=== PATIENT | male | born 1975 | race Caucasian/White ===

== ENCOUNTER 2022-06-15 10:07 | Outpatient (CLI) | payer BC ==
[2022-06-15 12:57] LABS: Bilirubin Neg (Negative); Blood, Urine 50 (Negative); Clarity Clear (Clear); Glucose, Urine (Dipstick) Normal (Negative); Ketone, Urine Negative (Negative); Leukocyte Negative (Negative); Nitrite Negative (Negative); Protein, Urine (Dipstick) Negative (Neg-Trace); Specific Gravity, Urine 1.025 (1.005-1.030); Urobilinogen Normal mg/dL (Less than 2)
[2022-06-15 13:03] LABS: Hemoglobin 15.7 g/dL (13.5-17.5); Mean Corpuscular HGB CONC 32.6 g/dL (32.0-36.0); Mean Corpuscular Hemoglobin 28.6 pg (27.0-33.0); Mean Corpuscular Volume 87.8 fl (81.2-95.1); Mean Platelet Volume 12.1 fl (7.4-10.4); Platelet Count 197 10x3/uL (150-450); RBC Distribution Width 13.2 % (11.5-14.5); Red Blood Cell (RBC) Count 5.48 10x6/uL (4.32-5.72)
[2022-06-15 13:15] LABS: Squamous Epithelial 0-3 HPF (0-3); WBC/HPF 0-3 HPF (0-3)
[2022-06-15 13:16] LABS: INR-International Normal Ratio 0.9; PTT 24.1 sec (22.0-33.0); Prothrombin Time 10.1 sec (9.5-12.1)
[2022-06-15 13:16] LABS: Mucous/LPF 1+ LPF (<2+)
[2022-06-15 13:17] LABS: Bacteria/HPF 1+ HPF (None Seen)
[2022-06-15 13:38] LABS: Anion Gap 17 mmol/L (10-20); BUN (Urea Nitrogen) 19 mg/dL (8.9-20.6); Calc. Creatinine Clearance 0 mL/min (70-130); Calcium 8.7 mg/dL (7.8-10.44); Carbon Dioxide 21 mmol/L (22-29); Chloride 106 mmol/L (98-107); Estimated GFR 108; Glucose 93 mg/dL (70-105); Potassium 4.6 mmol/L (3.5-5.1); Sodium 139 mmol/L (136-145)
== END 2022-06-15 10:08 | disposition home or self-care (01) ==
LOC: LABBT 10:07
PROVIDERS: ATTEND Urology
DX: Z01.818 Encounter for other preprocedural examination (principal); N50.89 Other specified disorders of the male genital organs
CPT/HCPCS: 80048; 81001; 85027; 85610; 85730; 87086; 93005; 93010

== ENCOUNTER 2022-06-19 08:11 | Day surgery (SDC) | payer BC ==
[2022-06-18 12:07] VITALS: BMI 27.7
[2022-06-19] MEDS ORDERED: Midazolam HCl 2 mg/2 ml Vial ONE ×2 (10:05→11:17)
[2022-06-19] MEDS ORDERED: Fentanyl 250 MCG/5 ML VIAL ONE (11:17)
[2022-06-19] MEDS ORDERED: Bupivacaine 0.25% HCL 30 ML VIAL ONE (11:26)
[2022-06-19] MEDS ORDERED: Sodium Chloride 0.9% 100 ML ONE (11:40)
[2022-06-19] MEDS ORDERED: CEFAZOLIN 2 GM VIAL ONE (11:40)
[2022-06-19] MEDS ORDERED: Esmolol 100 MG/10 ML VIAL ONE (12:07)
[2022-06-19] MEDS ORDERED: ePHEDrine 50 MG/ML VIAL ONE (12:07)
[2022-06-19] MEDS ORDERED: Ketorolac Tromethamine 30 MG/ML VIAL ONE (12:07)
[2022-06-19] MEDS ORDERED: Dexamethasone 20 MG/5 ML VIAL ONE (12:07)
[2022-06-19] MEDS ORDERED: Ondansetron PF 4 MG/2 ML Vial ONE (12:07)
[2022-06-19] MEDS ORDERED: PROPOFOL 200 MG/20 ML VIAL ONE (12:07)
[2022-06-19] MEDS ORDERED: Lidocaine 1% PF 5 ML VIAL ONE (12:07)
[2022-06-19] MEDS ORDERED: HYDROcodone/Acetaminophen 5/325 mg Tablet ONE (14:32)
== END 2022-06-19 14:52 | disposition home or self-care (01) ==
LOC: SDC 08:11
PROVIDERS: ATTEND Urology
PROC: 0VTB0ZZ Resection of Left Testis, Open Approach (ICD-10-PCS; principal; 2022-06-19)
DX: C62.12 Malignant neoplasm of descended left testis (principal); Z79.899 Other long term (current) drug therapy
CPT/HCPCS: 88309; J1100; J1885; J2250; J2405; J2704; J3010; J3490; S0020

== ENCOUNTER 2022-07-15 09:08 | Outpatient (CLI) | payer BC ==
[2022-07-15] MEDS ORDERED: Iopamidol 370 76% 100 ML VIAL ONE (09:14)
== END 2022-07-15 09:09 | disposition home or self-care (01) ==
LOC: CT 09:08
PROVIDERS: ATTEND Urology
DX: C62.92 Malignant neoplasm of left testis, unspecified whether descended or undescended (principal)
CPT/HCPCS: 74177

== ENCOUNTER 2022-10-26 09:37 | Outpatient (CLI) | payer BC ==
[2022-10-26 11:34] LABS: Bilirubin Neg (Negative); Blood, Urine 25 (Negative); Glucose, Urine (Dipstick) Normal (Negative); Ketone, Urine Negative (Negative); Leukocyte Negative (Negative); Nitrite Negative (Negative); Protein, Urine (Dipstick) Negative (Neg-Trace); Specific Gravity, Urine 1.025 (1.005-1.030); Urobilinogen Normal mg/dL (Less than 2)
[2022-10-26 11:40] LABS: Mean Corpuscular HGB CONC 32.5 g/dL (32.0-36.0); Mean Corpuscular Hemoglobin 28.6 pg (27.0-33.0); Mean Platelet Volume 11.5 fl (7.4-10.4); Platelet Count 207 10x3/uL (150-450); RBC Distribution Width 13.5 % (11.5-14.5); White Blood Cell (WBC) Count 7.7 10x3/uL (3.5-10.5)
[2022-10-26 11:42] LABS: Clarity Hazy (Clear)
[2022-10-26 11:48] LABS: Bacteria/HPF None Seen HPF (None Seen); RBC/HPF 0-3 HPF (0-3); Squamous Epithelial None Seen HPF (0-3); WBC/HPF None Seen HPF (0-3)
[2022-10-26 12:01] LABS: INR-International Normal Ratio 0.9; PTT 27.3 sec (22.0-33.0); Prothrombin Time 10.2 sec (9.5-12.1)
[2022-10-26 13:06] LABS: Anion Gap 12 mmol/L (10-20); BUN (Urea Nitrogen) 25 mg/dL (8.9-20.6); Calc. Creatinine Clearance 0 mL/min (70-130); Carbon Dioxide 28 mmol/L (22-29); Chloride 104 mmol/L (98-107); Estimated GFR 98; Glucose 90 mg/dL (70-105); Potassium 4.2 mmol/L (3.5-5.1); Sodium 140 mmol/L (136-145)
== END 2022-10-26 09:38 | disposition home or self-care (01) ==
LOC: LABBT 09:37
PROVIDERS: ATTEND Urology
DX: Z01.818 Encounter for other preprocedural examination (principal); C62.92 Malignant neoplasm of left testis, unspecified whether descended or undescended
CPT/HCPCS: 80048; 81001; 82105; 83615; 84702; 85027; 85610; 85730; 87086; 93005; 93010

== ENCOUNTER 2022-11-06 08:14 | Day surgery (SDC) | payer BC ==
[2022-10-26 10:13] VITALS: BMI 30.4
[2022-11-06] MEDS ORDERED: Propofol 500 MG/50 ML VIAL ONE (09:07)
[2022-11-06] MEDS ORDERED: fentaNYL PF 100 MCG/2 ML SYRINGE ONE ×4 (09:07→11:43)
[2022-11-06] MEDS ORDERED: Sodium Chloride 0.9% 100 ML ONE (10:42)
[2022-11-06] MEDS ORDERED: CEFAZOLIN 2 GM VIAL ONE (10:42)
[2022-11-06] MEDS ORDERED: PROPOFOL 200 MG/20 ML VIAL ONE (10:46)
[2022-11-06] MEDS ORDERED: Lidocaine 1% PF 5 ML VIAL ONE (10:46)
[2022-11-06] MEDS ORDERED: Ondansetron PF 4 MG/2 ML Vial ONE (10:46)
[2022-11-06] MEDS ORDERED: Dexamethasone 20 MG/5 ML VIAL ONE (10:46)
[2022-11-06] MEDS ORDERED: Glycopyrrolate 0.2 MG/ML 5 ML SYRINGE ONE (10:46)
[2022-11-06] MEDS ORDERED: ePHEDrine Sulfate 50 MG/10 ML VIAL ONE (10:46)
[2022-11-06] MEDS ORDERED: PHENYLEPHRINE-NS 100 MCG/ML 10 ML SYRINGE ONE (10:46)
[2022-11-06] MEDS ORDERED: Bacitracin Zinc Ointment 30 gm TUBE ONE (11:08)
[2022-11-06] MEDS ORDERED: Bupivacaine 0.25% HCL 30 ML VIAL ONE (11:08)
== END 2022-11-06 13:10 | disposition home or self-care (01) ==
LOC: SDC 08:14
PROVIDERS: ATTEND Urology
PROC: 0VB50ZZ Excision of Scrotum, Open Approach (ICD-10-PCS; principal; 2022-11-06)
DX: N50.89 Other specified disorders of the male genital organs (principal); C62.92 Malignant neoplasm of left testis, unspecified whether descended or undescended
CPT/HCPCS: 88305; 88341; 88342; J1100; J2405; J2704; J3490; S0020